=== PATIENT | female | born 1960 | race Caucasian/White ===

== ENCOUNTER 2022-10-08 14:44 | Observation (INO) | payer OTHER ==
[2022-10-08] MEDS ORDERED: HEPARIN SODIUM 1,000 UN/ML (10ML VL) IV ONE (15:20)
[2022-10-08] MEDS ORDERED: SODIUM CHLORIDE 0.9% 1,000 ML IV STA (15:20)
[2022-10-08] MEDS ORDERED: ASPIRIN 81 MG PO STA (15:20)
[2022-10-08] MEDS ORDERED: NITROGLYCERIN SL TABS 0.4 MG TAB SUBLINGUAL STA (15:20)
[2022-10-08] MEDS ORDERED: HEPARIN SOD,PORK IN 0.45% NACL 25,000 UNIT in 0.45% NACL 1 250ML.BAG IV SCH (15:30)
[2022-10-08] MEDS ORDERED: ONDANSETRON 4 MG/2 ML VIAL IVP STA (15:40)
--- NOTE | 2022-10-08 15:40 | ED ---
General Adult HPI - General Chief complaint: Chest Pain Stated complaint: Possible heart attack Time Seen by Provider: 10/08/22 15:03 Source: patient Mode of arrival: wheelchair Limitations: no limitations - History of Present Illness Initial comments: Dictation was produced using [employer] dictation software. please excuse any grammatical, word or spelling errors. Chief Complaint: 61 year old alcoholic male presents with brother for symptoms of palpitations, nausea vomiting and chest pain History of Present Illness: Patient's 61-year-old female she has no known medical history. She does not follow up with a primary care doctor for the last 7 days she's been having on-and-off chest pain associated with this nonbloody emesis. States that pain is sometimes substernal sometimes to the right anterior chest. She states that sometimes sharp. States that it sometimes radiates to the jaw. Does not radiate down the extremities. There is associated with nausea and she reports yes or diaphoresis. She reports that the pain is a 7 on a 10 scale. She has no known cardiac history. Brother at the bedside reports that patient does not seem to be herself. The ROS documented in this emergency department record has been reviewed and confirmed by me. Those systems with pertinent positive or negative responses have been documented in the HPI. All other systems are other negative and/or noncontributory. - Related Data Allergies Allergy/AdvReac Type Severity Reaction Status Date / Time No Known Allergies Allergy Verified 10/08/22 14:49 Review of Systems ROS Statement: Those systems with pertinent positive or pertinent negative responses have been documented in the HPI. ROS Other: All systems not noted in ROS Statement are negative. Past Medical History Additional Past Medical History / Comment(s): COVID History of Any Multi-Drug Resistant Organisms: None Reported Past Surgical History: No Surgical Hx Reported Past Psychological History: No Psychological Hx Reported Smoking Status: Former smoker Past Alcohol Use History: Daily General Exam - General Exam Comments Initial Comments: PHYSICAL EXAM: General Impression: Alert and oriented x3, not in acute distress HEENT: Normocephalic atraumatic, extra-ocular movements intact, pupils equal and reactive to light bilaterally, mucous membranes moist. Cardiovascular: Heart regular rate and rhythm Chest: Able to complete full sentences, no retractions, no tachypnea Abdomen: abdomen soft, non-tender, non-distended, no organomegaly Musculoskeletal: Pulses present and equal in all extremities, no peripheral edema Motor: no focal deficits noted Neurological: CN II-XII grossly intact, no focal motor or sensory deficits noted Skin: Intact with no visualized rashes Psych: Normal affect and mood Limitations: no limitations Course Vital Signs 10/08/22 10/08/22 14:47 16:00 Temperature 97.5 F L Pulse Rate 127 H 77 Respiratory 22 18 Rate Blood Pressure 148/84 132/73 O2 Sat by Pulse 99 100 Oximetry - Reevaluation(s) Reevaluation #1: 10/08/22 16:43 patient given nitroglycerin and reevaluated at the bedside states that her symptoms were significantly alleviated after nitroglycerin administration. CT angiography results reviewed showing no pulmonary embolism. It does appear to be some signs of early pneumonia. Patient given antibiotics. EKG Findings - EKG Comments: EKG Findings:: My EKG interpretation: Ventricular rate 120, sinus tachycardia,. Interval 14, QRS 79, QTC 373. This EKG shows diffuse ST depressions with questionable ST elevations in anterior precordial leads and aVR. Repeat EKG was obtained 18 minutes later showing mild depressions over no ST elevations. Second G have ventricular rate of 100, sinus tachycardia with NM interval 127, QRS 94 QTC 389 Medical Decision Making - Medical Decision Making Was pt. sent in by a medical professional or institution (SARATH Avalos, [employer], urgent care, hospital, or detention...) When possible be specific @ -No Did you speak to anyone other than the patient for history (EMS, parent, family, police, friend...)? What history was obtained from this source @ -The bedside reports that patient doesn't seem to be herself Did you review nursing and triage notes (agree or disagree)? Why? @ -I reviewed and agree with nursing and triage notes Were old charts reviewed (outside hosp., previous admission, EMS record, old EKG, old radiological studies, urgent care reports/EKG's, detention records)? Report findings @ -No old charts available for review Differential Diagnosis (chest pain, altered mental status, abdominal pain women, abdominal pain men, vaginal bleeding, musculoskeletal, weakness, fever, dyspnea, syncope, headache, dizziness, GI bleed, back pain, seizure, CVA, palpatations, mental health)? @ -Differential Chest Pain: Stable Angina, Unstable Angina, STEMI, NSTEMI Aortic Dissection, Pneumothorax, Musculoskeletal, Esophageal Spasm GERD, Cholecystitis, Pancreatitis, Zoster, this is not meant to be an all-inclusive list. EKG interpreted by me (3pts min.). @ -See above X-rays interpreted by me (1pt min.). @ -Chest x-ray shows no acute processes. CT interpreted by me (1pt min.). @ -CT angiography shows no pulmonary embolism. There does appear to be some patchy densities suspicious for early pneumonia. Other incidental findings of hepatic steatosis and esophagitis U/S interpreted by me (1pt. min.). @ -None done What testing was considered but not performed or refused? (CT, X-rays, U/S, labs)? Why? @ -None What meds were considered but not given or refused? Why? @ -None Did you discuss the management of the patient with other professionals (professionals i.e. , PA, [employer], lab, RT, psych nurse, secondary social studies teacher, lead radiation therapist, teacher, public information officer, outpatient case manager)? Give summary @ -Clinical presentation, labs and imaging discussed with Debby Kate who is willing to accept patient care on behalf of [facility] hospitalist group Was smoking cessation discussed for >3mins.? @ -No Was critical care preformed (if so, how long)? @ -Yes, 33 minutes Were there social determinants of health that impacted care today? How? (Homelessness, low income, unemployed, alcoholism, drug addiction, transportation, low edu. Level, literacy, decrease access to med. care, longterm, rehab)? @ - alcoholism Was there de-escalation of care discussed even if they declined (Discuss DNR or withdrawal of care, Hospice)? DNR status @ -No What co-morbidities impacted this encounter? (DM, HTN, Smoking, COPD, CAD, Can cer, CVA, ARF, Chemo, Hep., AIDS, mental health diagnosis, sleep apnea, morbid obesity)? @ -None Was patient admitted / discharged? Hospital course, mention meds given and route, prescriptions, significant lab abnormalities, going to OR and other pertinent info. @ -61-year-old female presents to the emergency department for unstable angina. Symptoms considerably improved with nitroglycerin administration. She did have ischemic findings on EKG. Troponin is negative. Patient isn't having symptoms for greater than one week. He did appear to be some evidence of pneumonia on CT angiography. Patient be admitted patient given aspirin. She is on heparin and given Nitropaste. Undiagnosed new problem with uncertain prognosis? @ -No Drug Therapy requiring intensive monitoring for toxicity (Heparin, Nitro, Insulin, Cardizem)? @ -No Were any procedures done? @ -No Diagnosis/symptom? Acute, or Chronic, or Acute on Chronic? Uncomplicated (without systemic symptoms) or Complicated (systemic symptoms)? @ -Acute coronary syndrome Side effects of treatment? @ -No Exacerbation, Progression, or Severe Exacerbation? @ -No Poses a threat to life or bodily function? How? (Chest pain, [place], [place], pneumonia, PE, COPD, DKA, ARF, appy, cholecystitis, CVA, Diverticulitis, Homicidal, Suicidal, threat to staff... and all critical care pts) @ -yes - Lab Data Result diagrams: 10/08/22 15:28 10/08/22 15:28 Lab Results 10/08/22 10/08/22 10/08/22 Range/Units 15:28 15:28 15:28 WBC 14.7 H (3.8-10.6) k/uL RBC 3.06 L (3.80-5.40) m/uL Hgb 10.6 L (11.4-16.0) gm/dL Hct 31.2 L (34.0-46.0) % MCV 102.2 H (80.0-100.0) fL MCH 34.7 (25.0-35.0) pg MCHC 34.0 (31.0-37.0) g/dL RDW 15.6 H (11.5-15.5) % Plt Count 495 H (150-450) k/uL MPV 8.9 Neutrophils % 76 % Lymphocytes % 16 % Monocytes % 5 % Eosinophils % 1 % Basophils % 0 % Neutrophils # 11.3 H (1.3-7.7) k/uL Lymphocytes # 2.4 (1.0-4.8) k/uL Monocytes # 0.8 (0-1.0) k/uL Eosinophils # 0.2 (0-0.7) k/uL Basophils # 0.0 (0-0.2) k/uL Macrocytosis Slight PT 10.7 (9.0-12.0) sec INR 1.0 (<1.2) APTT 20.7 L (22.0-30.0) sec Sodium 140 (137-145) mmol/L Potassium 3.1 L (3.5-5.1) mmol/L Chloride 94 L (98-107) mmol/L Carbon Dioxide 28 (22-30) mmol/L Anion Gap 18 mmol/L BUN 21 H (7-17) mg/dL Creatinine 0.80 (0.52-1.04) mg/dL Est GFR (CKD-EPI)AfAm >90 (>60 ml/min/1.73 sqM) Est GFR (CKD-EPI)NonAf 80 (>60 ml/min/1.73 sqM) Glucose 152 H (74-99) mg/dL Calcium 9.4 (8.4-10.2) mg/dL Magnesium 1.6 (1.6-2.3) mg/dL Total Bilirubin 1.0 (0.2-1.3) mg/dL AST 36 (14-36) U/L ALT 16 (4-34) U/L Alkaline Phosphatase 69 (38-126) U/L Troponin I (0.000-0.034) ng/mL Total Protein 7.3 (6.3-8.2) g/dL Albumin 4.2 (3.5-5.0) g/dL 10/08/22 Range/Units 15:28 WBC (3.8-10.6) k/uL RBC (3.80-5.40) m/uL Hgb (11.4-16.0) gm/dL Hct (34.0-46.0) % MCV (80.0-100.0) fL MCH (25.0-35.0) pg MCHC (31.0-37.0) g/dL RDW (11.5-15.5) % Plt Count (150-450) k/uL MPV Neutrophils % % Lymphocytes % % Monocytes % % Eosinophils % % Basophils % % Neutrophils # (1.3-7.7) k/uL Lymphocytes # (1.0-4.8) k/uL Monocytes # (0-1.0) k/uL Eosinophils # (0-0.7) k/uL Basophils # (0-0.2) k/uL Macrocytosis PT (9.0-12.0) sec INR (<1.2) APTT (22.0-30.0) sec Sodium (137-145) mmol/L Potassium (3.5-5.1) mmol/L Chloride (98-107) mmol/L Carbon Dioxide (22-30) mmol/L Anion Gap mmol/L BUN (7-17) mg/dL Creatinine (0.52-1.04) mg/dL Est GFR (CKD-EPI)AfAm (>60 ml/min/1.73 sqM) Est GFR (CKD-EPI)NonAf (>60 ml/min/1.73 sqM) Glucose (74-99) mg/dL Calcium (8.4-10.2) mg/dL Magnesium (1.6-2.3) mg/dL Total Bilirubin (0.2-1.3) mg/dL AST (14-36) U/L ALT (4-34) U/L Alkaline Phosphatase (38-126) U/L Troponin I <0.012 (0.000-0.034) ng/mL Total Protein (6.3-8.2) g/dL Albumin (3.5-5.0) g/dL Disposition Clinical Impression: Unstable angina pectoris Disposition: ADMITTED IP TO THIS [facility] Condition: Serious Referrals: None,Stated [Primary Care Provider] - 1-2 days Decision Time: 16:45
[2022-10-08 15:53] LABS: Partial Thromboplastin Time 20.7 sec (22.0-30.0)
[2022-10-08 15:54] LABS: Basophils % (A) 0 %; Eosinophils # (A) 0.2 k/uL (0-0.7); Eosinophils % (A) 1 %; HCT 31.2 % (34.0-46.0); HGB 10.6 gm/dL (11.4-16.0); Lymphocytes # (A) 2.4 k/uL (1.0-4.8); Lymphocytes % (A) 16 %; MCH 34.7 pg (25.0-35.0); MCV 102.2 fL (80.0-100.0); Macrocytosis Slight; Mean Platelet Volume 8.9; Monocytes # (A) 0.8 k/uL (0-1.0); Monocytes % (A) 5 %; Neutrophils # (A) 11.3 k/uL (1.3-7.7); Neutrophils % (A) 76 %; Platelet Count 495 k/uL (150-450); RBC 3.06 m/uL (3.80-5.40); RDW 15.6 % (11.5-15.5); WBC 14.7 k/uL (3.8-10.6)
[2022-10-08 15:56] LABS: Prothrombin Time 10.7 sec (9.0-12.0)
[2022-10-08 15:57] LABS: ALT 16 U/L (4-34); AST 36 U/L (14-36); African American GFR (CKD) >90 (>60 ml/min/1.73 sqM); Albumin 4.2 g/dL (3.5-5.0); Alkaline Phosphatase 69 U/L (38-126); Anion Gap 18 mmol/L; Blood Urea Nitrogen 21 mg/dL (7-17); Calcium 9.4 mg/dL (8.4-10.2); Carbon Dioxide 28 mmol/L (22-30); Chloride 94 mmol/L (98-107); Glucose 152 mg/dL (74-99); Magnesium 1.6 mg/dL (1.6-2.3); Non-African American GFR(CKD) 80 (>60 ml/min/1.73 sqM); Potassium 3.1 mmol/L (3.5-5.1); Sodium 140 mmol/L (137-145); Total Protein 7.3 g/dL (6.3-8.2)
--- NOTE | 2022-10-08 15:57 | XR ---
EXAMINATION TYPE: XR chest 2V DATE OF EXAM: 10/08/2022 3:46 PM COMPARISON: None TECHNIQUE: XR chest 2V Frontal and lateral views of the chest. CLINICAL INDICATION:Female, 61 years old with history of Chest Pain; FINDINGS: Lungs/Pleura: There is no evidence of pleural effusion, focal consolidation, or pneumothorax. Pulmonary vascularity: Unremarkable. Heart/mediastinum: Cardiomediastinal silhouette is unremarkable. Musculoskeletal: No acute osseous pathology. IMPRESSION: No acute cardiopulmonary disease/process.
--- NOTE | 2022-10-08 16:37 | CT ---
EXAMINATION TYPE: CT angio chest DATE OF EXAM: 10/08/2022 COMPARISON: Radiograph same day HISTORY: 61-year-old female chest pain, suspect PE TECHNIQUE: Contiguous axial scanning of the chest performed with IV Contrast, patient injected with 1 00 mL of Isovue 370. Coronal/sagittal MIP reconstructions performed. CT DLP: 219.3 mGycm Automated exposure control for dose reduction was used. FINDINGS: Heart normal size without pericardial effusion. No flattening of the interventricular septum reflux o f contrast into the hepatic veins. Aorta normal caliber with a bovine configuration to the aortic arch. No thoracic lymphadenopathy by CT size criteria. Satisfactory opacification of the pulmonary arterial system. No evidence for pulmonary embolus. Mild diffuse bronchial wall thickening. Some mild patchy opacity superior segment left lower lobe cou ld represent a small infectious/inflammatory focus. Mild biapical pleural-parenchymal scarring. No ot her consolidation or pleural effusion seen. There is a tiny hiatal hernia with mild to moderate circumferential wall thickening distal third esop hagus. Otherwise, visualized upper abdomen shows marked diminished attenuation of the hepatic parench yma compatible with fatty infiltration. Bilateral renal cysts measuring up to 2.8 cm. Bones: No osseous destructive process. IMPRESSION: 1. NO EVIDENCE FOR PULMONARY EMBOLUS. 2. SOME FOCAL PATCHY DENSITY IN THE SUPERIOR SEGMENT LEFT LOWER LOBE COULD REPRESENT A SMALL INFECTIO US/INFLAMMATORY FOCUS. CORRELATE TO EXCLUDE EARLY PNEUMONIA. 3. SMALL HIATAL HERNIA WITH MILD TO MODERATE CIRCUMFERENTIAL WALL THICKENING OF THE DISTAL THIRD ESOP HAGUS. FINDINGS MAY REFLECT REFLUX OR OTHER ESOPHAGITIS. RECOMMEND DIRECT VISUALIZATION. 4. Moderate to severe hepatic steatosis. Correlate with LFTs, lipid profile, and patient risk factors .
[2022-10-08] MEDS ORDERED: cefTRIAXone IN SWFI 1,000 MG/10 ML SYRINGE IVP STA (16:41)
[2022-10-08] MEDS ORDERED: AZITHROMYCIN 500 MG in SODIUM CHLORIDE 0.9% 250 ML IVPB STA (16:41)
[2022-10-08] MEDS ORDERED: NITROGLYCERIN SL TABS 0.4 MG TAB SUBLINGUAL PRN (16:58)
[2022-10-08] MEDS: NITROGLYCERIN OINT 1 INCH/GM PACKET TOPICAL SCH ×2 (18:05→23:29)
[2022-10-08] MEDS ORDERED: Potassium Replacement Protocol 1 EACH MISC MISCELLANE PRN (19:36)
[2022-10-08] MEDS ORDERED: Magnesium Replacement Protocol 1 EACH MISC MISCELLANE PRN (19:36)
[2022-10-08] MEDS: MAGNESIUM SULFATE-D5W PMX 1 GM in DEXTROSE/WATER 1 100ML.BAG IVPB SCH ×2 (19:44→20:50)
[2022-10-08] MEDS: POTASSIUM CHLORIDE ER 20 MEQ TAB.ER PO SCH ×2 (19:45→20:50)
[2022-10-09 05:19] LABS: Magnesium 2.5 mg/dL (1.6-2.3); Potassium 3.2 mmol/L (3.5-5.1)
[2022-10-09] MEDS ORDERED: Potassium Replacement Protocol 1 EACH MISC MISCELLANE PRN ×2 (05:30→09:28)
[2022-10-09] MEDS: POTASSIUM CHLORIDE ER 20 MEQ TAB.ER PO SCH ×2 (05:50→06:45)
[2022-10-09] MEDS: NITROGLYCERIN OINT 1 INCH/GM PACKET TOPICAL SCH (05:51)
[2022-10-09 08:23] VITALS: RESP 16
[2022-10-09] MEDS ORDERED: DOBUTamine DRIP for NUC MED 500 MG in DEXTROSE/WATER 1 250ML.BAG IV PRN (08:27)
--- NOTE | 2022-10-09 08:34 | P.CRDCN ---
History of Present Illness Consult date: 10/09/22 History of present illness: History of Present Illness: The patient is a 61-year-old female, does not follow with a physician who 2 months ago had COVID infection. Since that time she has been feeling fatigued, dyspneic with lack of energy. She has been complaining of chest discomfort, at times respirophasic. She has been having nausea, vomiting and diarrhea with w orsening discomfort. She came into the emergency room for further evaluation. She feels better today. She denies any prior history of CAD. She used to smoke and drink alcohol until her illness 2 months ago. She denies any PND, orthopnea or peripheral edema. She has no palpitations or syncope. She takes no medication at home. In the emergency room her EKG showed no acute changes and her troponin were normal. She has no prior cardiac workup. Medications: None Review of Systems: Respiratory: Dyspnea on exertion and a prior history of smoking GI: She has nausea and vomiting and diarrhea. No clear GI bleeding : No hematuria or dysuria. Nervous System: No stroke or seizure. Physical Examination: 61-year-old female, alert oriented no apparent distress,Blood pressure 108/60, Heart rate 70 Head: Normocephalic. Eyes: Sclerae nonicteric. Neck: Good carotid upstroke, no bruit, no jugular venous distention. Lungs: Clear to auscultation. Heart: Regular rate and rhythm, S1-S2, no S3, no rub. No murmur. Abdomen: Soft nontender, positive bowel sounds no organomegaly. Extremities: No edema, intact distal pulses. Labs: Hemoglobin 10.6, WBC 14.7, potassium 3.1, BUN 21, creatinine 0.8. Troponin less than 0.012. Chest CT angiogram showed no evidence of pulmonary embolism with a small hiatal hernia, chest x-ray shows no acute infiltrate. EKG: Sinus mechanism with no acute ST segment changes Impression: 1. Chest discomfort, probably noncardiac, probably worse with the nausea and vomiting 2. Anemia of unclear etiology 3. Nausea and vomiting and diarrhea 4. Prior history of smoking and alcohol intake Plan: 1. Stop IV heparin 2. Stop Nitropaste 3. Obtain an echocardiogram with Doppler 4. Dobutamine stress echocardiogram 5. Evaluation of her GI symptoms per admitting physician 6. Thank you for this consult we will follow with you Past Medical History Additional Past Medical History / Comment(s): COVID 2022 History of Any Multi-Drug Resistant Organisms: None Reported Past Surgical History: No Surgical Hx Reported Past Anesthesia/Blood Transfusion Reactions: No Reported Reaction Past Psychological History: No Psychological Hx Reported Smoking Status: Former smoker Past Alcohol Use History: Daily Past Drug Use History: None Reported - Past Family History Mother History Unknown: Yes Additional Family Medical History / Comment(s): aneursym Father History Unknown: Yes Family Medical History: Myocardial Infarction ([place]) Medications and Allergies Home Medications Medication Instructions Recorded Confirmed Type No Known Home Medications 10/08/22 10/08/22 History Allergies Allergy/AdvReac Type Severity Reaction Status Date / Time No Known Allergies Allergy Verified 10/08/22 17:10 Physical Exam Vitals: Vital Signs Temp Pulse Pulse Resp BP BP Pulse Ox 10/09/22 08:20 98.1 F 73 16 108/61 100 10/09/22 04:00 72 17 100/63 98 10/09/22 00:00 97.9 F 70 18 98/62 98 10/08/22 19:41 98.1 F 83 17 115/55 98 10/08/22 18:00 75 18 121/70 99 10/08/22 17:00 76 20 132/73 99 10/08/22 16:30 81 20 132/73 100 10/08/22 16:00 81 18 118/94 100 10/08/22 14:47 97.5 F L 127 H 22 148/84 99 Intake and Output 10/08/22 10/09/22 10/09/22 22:59 06:59 14:59 Intake Total 47.527 66.632 Balance 47.527 66.632 Intake: Intake, IV Titration 47.527 66.632 Amount Heparin Sod,Pork in 0.45% 47.527 66.632 NaCl 25,000 unit In 0.45 % NaCl 1 250ml.bag @ 12 UNITS/KG/HR 7.076 mls/hr IV .Q24H [facility] Rx#: [id number] Other: Voiding Method Toilet Toilet Toilet # Voids 1 Weight 54.5 kg Results 10/08/22 15:28 10/09/22 04:22 Cardiac Enzymes 10/08/22 10/08/22 10/08/22 Range/Units 15:28 15:28 19:10 AST 36 (14-36) U/L Troponin I <0.012 <0.012 (0.000-0.034) ng/mL 10/08/22 Range/Units 21:41 AST (14-36) U/L Troponin I <0.012 (0.000-0.034) ng/mL Coagulation 10/08/22 10/08/22 10/09/22 Range/Units 15:28 21:41 04:22 PT 10.7 (9.0-12.0) sec APTT 20.7 L 30.4 H 37.1 H (22.0-30.0) sec CBC 10/08/22 Range/Units 15:28 WBC 14.7 H (3.8-10.6) k/uL RBC 3.06 L (3.80-5.40) m/uL Hgb 10.6 L (11.4-16.0) gm/dL Hct 31.2 L (34.0-46.0) % Plt Count 495 H (150-450) k/uL Comprehensive Metabolic Panel 10/08/22 10/09/22 Range/Units 15:28 04:22 Sodium 140 (137-145) mmol/L Potassium 3.1 L 3.2 L (3.5-5.1) mmol/L Chloride 94 L (98-107) mmol/L Carbon Dioxide 28 (22-30) mmol/L BUN 21 H (7-17) mg/dL Creatinine 0.80 (0.52-1.04) mg/dL Glucose 152 H (74-99) mg/dL Calcium 9.4 (8.4-10.2) mg/dL AST 36 (14-36) U/L ALT 16 (4-34) U/L Alkaline Phosphatase 69 (38-126) U/L Total Protein 7.3 (6.3-8.2) g/dL Albumin 4.2 (3.5-5.0) g/dL Current Medications Generic Name Dose Route Start Last Admin Trade Name Freq PRN Reason Stop Dose Admin Aspirin 81 mg 10/09/22 09:00 Aspirin 325 Mg Tab PO DAILY SAVANNA Dobutamine HCl/Dextrose 500 mg 250 mls @ 16.35 mls/hr 10/09/22 08:27 / IV Solution IV 10/09/22 12:27 .[id number] PRN Per Protocol Protocol 10 MCG/KG/MIN Miscellaneous Information 1 each 10/08/22 19:36 Magnesium Replacement Protocol 1 Each Misc MISCELLANE DAILY PRN Per Protocol Protocol Miscellaneous Information 1 each 10/08/22 19:36 Potassium Replacement Protocol 1 Each Misc MISCELLANE DAILY PRN Per Protocol Protocol Nitroglycerin 0.4 mg 10/08/22 16:58 Nitroglycerin Sl Tabs 0.4 Mg Tab SUBLINGUAL Q5M PRN Chest Pain Intake and Output 10/08/22 10/09/22 10/09/22 22:59 06:59 14:59 Intake Total 47.527 66.632 Balance 47.527 66.632 Intake: Intake, IV Titration 47.527 66.632 Amount Heparin Sod,Pork in 0.45% 47.527 66.632 NaCl 25,000 unit In 0.45 % NaCl 1 250ml.bag @ 12 UNITS/KG/HR 7.076 mls/hr IV .Q24H [facility] Rx#: [id number] Other: Voiding Method Toilet Toilet Toilet # Voids 1 Weight 54.5 kg 10/08/22 15:28 10/09/22 04:22
[2022-10-09] MEDS ORDERED: ASPIRIN 81 MG PO SCH (09:00)
[2022-10-09] MEDS ORDERED: ASPIRIN 325 MG TAB PO SCH (09:00)
[2022-10-09 09:27] LABS: Chol/HDL Ratio 5.41 Ratio; LDL Cholesterol,Calculated 91.8 mg/dL (0.0-131.0)
[2022-10-09] MEDS ORDERED: POTASSIUM CHLORIDE ER 20 MEQ TAB.ER PO SCH (10:00)
[2022-10-09] MEDS ORDERED: DOBUTamine DRIP for NUC MED 500 MG/250 ML BAG IV ONE (11:12)
--- NOTE | 2022-10-09 11:43 | CA ---
Dobutamine Stress Echocardiogram Report Geovanna Mixon Age: 61 Gender: F : 1960 Exam Date: 10/09/2022 10:34 Exam Location: [place] [facility] Ordering Physician: Eren Nicole MD ([id number]) Referring Physician: EREN NICOLE,, Oral Surgeon: BING,, Technologist: Ht (in): 64 Wt (lb): 120 Procedure CPT: Indication: Chest Pain ICD-9 Codes: Rhythm: Patient History: Chest pain Cardiac Medications: Medications in past 24 hours: Contrast: Total Dose (mL): Stress Results Protocol: Dobutamine Peak Dose (???g/kg/min): 40 Duration (min:sec): Atropine:(mg) Target HR: 134 Double Product: Resting HR: 68 Resting BP: 107 / 56 Peak HR: 135 Peak BP: 152 / 67 Max Predicted HR: 158 85 % Max Predicted HR Stress Summary: BP Response: Reason for Termination: Exceeded target heart rate (85% max predicted) Cardiac Symptoms: No Symptoms ECG Analysis Resting EKG: Normal sinus rhythm normal lites normal intervals Stress EKG: Patient was given intravenous dobutamine or a period of 10 and half minutes achieving 85% of predicted maximal heart rate without chest pain or diagnostic ST segment depression Arrhythmia: Echo Analysis Base Echo Analysis: Normal left ventricular size wall motion systolic function Low Echo Anaylsis: Normal Peak Echo Analysis: Normal hyperdynamic response Recovery Echo: Normal MEASUREMENTS (Male/Female) Normal Values CONCLUSIONS Negative stress test by EKG criteria Negative dobutamine stress echo Dr. Wayne Egan MD (Electronically Signed) Final Date: 09 October 2022 11:42
--- NOTE | 2022-10-09 11:45 | CA ---
Transthoracic Echo Report Name: Geovanna Mixon Age: 61 Gender: F : 1960 Exam Date: 10/09/2022 08:52 Exam Location: [place] [facility] Ht (in): 64 Wt (lb): 119 Ordering Physician: Eren Escobar MD ([id number]) Attending/Referring Phys: Care Attendant Keisha Cabello RDCS Procedure CPT: Indications: CP Cardiac Hx: Technical Quality: Fair Contrast 1: Total Dose (mL): Contrast 2: Total Dose (mL): MEASUREMENTS (Male / Female) Normal Values 2D ECHO LV Diastolic Diameter PLAX 3.6 cm 4.2 - 5.9 / 3.9 - 5.3 cm LV Systolic Diameter PLAX 2.4 cm IVS Diastolic Thickness 1.1 cm 0.6 - 1.0 / 0.6 - 0.9 cm LVPW Diastolic Thickness 1.0 cm 0.6 - 1.0 / 0.6 - 0.9 cm LV Relative Wall Thickness 0.6 RV Internal Dim ED PLAX 2.9 cm LA Volume 28.6 cm??? 18 - 58 / 22 - 52 cm??? M-MODE Aortic Root Diameter MM 2.8 cm LA Systolic Diameter MM 3.9 cm LA Ao Ratio MM 1.4 AV Cusp Separation MM 1.9 cm DOPPLER AV Peak Velocity 117.4 cm/s AV Peak Gradient 5.5 mmHg AV Mean Velocity 80.8 cm/s AV Mean Gradient 2.9 mmHg AV Velocity Time Integral 22.2 cm LVOT Peak Velocity 106.5 cm/s LVOT Peak Gradient 4.5 mmHg LVOT Velocity Time Integral 21.1 cm MV Area PHT 3.7 cm??? Mitral E Point Velocity 87.7 cm/s Mitral A Point Velocity 63.9 cm/s Mitral E to A Ratio 1.4 MV Deceleration Time 202.6 ms TR Peak Velocity 224.4 cm/s TR Peak Gradient 20.1 mmHg FINDINGS Left Ventricle Mildly increased left ventricular wall thickness. Left ventricular cavity size normal. Normal left ventricular systolic function with no obvious regional wall motion abnormalities. Left ventricular ejection fraction is estimated at 55-60 %. Right Ventricle Normal right ventricular size and function. Right ventricular systolic pressure within normal limits. Right Atrium Normal right atrial size. Left Atrium Normal left atrial size. Mitral Valve Structurally normal mitral valve. No mitral stenosis, regurgitation or prolapse. Aortic Valve Trileaflet aortic valve. No aortic valve stenosis or regurgitation. Tricuspid Valve Structurally normal tricuspid valve. Mild tricuspid regurgitation. Pulmonic Valve Trace pulmonic regurgitation. Pericardium No pericardial effusion. Aorta Normal size aortic root and proximal ascending aorta. CONCLUSIONS Normal LV systolic function Previewed by: Dr. Wayne Egan MD (Electronically Signed) Final Date: 09 October 2022 11:45
[2022-10-09 12:44] VITALS: BP 125/82; PULSE 75; TEMP 98.3
[2022-10-09 13:11] LABS: African American GFR (CKD) >90 (>60 ml/min/1.73 sqM); Anion Gap 12 mmol/L; Blood Urea Nitrogen 16 mg/dL (7-17); Calcium 8.1 mg/dL (8.4-10.2); Carbon Dioxide 28 mmol/L (22-30); Chloride 100 mmol/L (98-107); Glucose 112 mg/dL (74-99); Magnesium 2.2 mg/dL (1.6-2.3); Non-African American GFR(CKD) >90 (>60 ml/min/1.73 sqM); Potassium 3.2 mmol/L (3.5-5.1); Sodium 140 mmol/L (137-145)
--- NOTE | 2022-10-09 14:39 | P.HPIM ---
History of Present Illness H&P Date: 10/09/22 This is a pleasant 61-year-old female who presented to the emergency department with chest pain that she reports had started while doing some gardening. Patient reported that she felt palpitations associated with some nausea and vomiting. Patient does have history of drinking alcohol daily and is a former smoker although had Covid 2 months ago and has not drank since. Patient has not followed up with any physicians in quite some time and does not currently have a primary care provider. Patient was admitted for chest pain for cardiology to evaluate. EKG showed sinus tachycardia, chest x-ray showed no acute cardiopulmonary process or disease. Patient underwent CTA which showed no evidence for pulmonary embolus with some focal patchy densities in the superior segment left lower lobe that could represent an infectious inflammatory focus with a small hiatal hernia with some mild to moderate circumferential wall thickening of the distal third esophagus that may reflect reflux or esophagitis along with moderate to severe hepatic steatosis. Labs reviewed with a mildly elevated white count of 14.7, hemoglobin 10.6, platelets 495, MCV was 102.2, sodium was 140, potassium 3.1, BUN 21, creatinine 0.8, magnesium 1.6, total bili 1.0, troponins 3 were negative, ALT and AST were within normal limits and cholesterol panel was normal. Patient was evaluated by cardiology this morning and is scheduled to undergo stress testing with echo Review Of Systems: Constitutional: No fever, no chills, no night sweats. No weight change. No weakness, fatigue or lethargy. No daytime sleepiness. EENT: No headache. No blurred vision or double vision, no loss of vision. No loss of Hearing, no ringing in the ears, no dizziness. No nasal drainage or congestion. No epistaxis. No sore throat. Lungs: No shortness of breath, cough, no sputum production. No wheezing. Cardiovascular: Reports chest pain that has resolved, no lower extremity edema. Reports palpitations that resolved. No paroxysmal nocturnal dyspnea. No orthopnea. No lightheadedness or dizziness. No syncopal episodes. Abdominal: No abdominal pain. Reports resolved nausea, vomiting. No diarrhea. No constipation. No bloody or tarry stools.. No loss of appetite. Genitourinary: No dysuria, increased frequency, urgency. No urinary retention. Musculoskeletal: No myalgias. No muscle weakness, no gait dysfunction, no frequent falls. No back pain. No neck pain. Integumentary: No wounds, no lesions. No rash or pruritus. No unusual bruising. No change in hair or nails. Neurologic: No aphasia. No facial droop. No change in mentation. No head injury. No headache. No paralysis. No paresthesia. Psychiatric: No depression. No anxiety. No mood swings. Endocrine: No abnormal blood sugars. No weight change. No excessive sweating or thirst. No cold intolerance. PHYSICAL EXAMINATION: GENERAL: The patient is alert and oriented x4, Well developed, Thin built HEENT: Pupils are round and equally reacting to light. EOMI. no scleral icterus. No conjunctival pallor. Normocephalic, atraumatic. No pharyngeal erythema. No thyromegaly. CARDIOVASCULAR: S1 and S2 muffled PULMONARY: diminished breath sounds bilaterally with no wheezing or rhonchi noted. ABDOMEN: soft. Nontender on exam. non-distended, normoactive bowel sounds. No palpable organomegaly. MUSCULOSKELETAL: No joint swelling or deformity. EXTREMITIES: No cyanosis, clubbing, or pedal edema. NEUROLOGICAL: Gross neurological examination did not reveal any focal deficits. SKIN: No rashes. Assessment: Chest pain, ruled out ACS Nausea and vomiting, possible acute gastritis Recent COVID-19 infection 2 months ago Hepatic steatosis most likely secondary to continued alcohol use Former smoker, recently quit 2 months ago GI prophylaxis DVT prophylaxis No code Plan: Recommend to continue with current medications and management with cardiology to evaluate the patient. Cardiology recommending discontinuing IV heparin and underwent stress testing Tamra scan which was negative and has been cleared by cardiology Strongly encouraged the patient to follow up and establish with a primary care provider and resources were provided Recommend follow-up with cardiology outpatient Continue to refrain from using any alcohol or tobacco use Patient will be discharged later today The impression and plan of care has been dictated by Debby Kate, nurse practitioner as directed. Dr. Rob MD I have performed a history and examination and MDM of this patient, discussed the same with the dictator, and agree with the dictator's assessment and plan as written ,documented as a scribe. Based on total visit time, I have performed more than 50% of the visit. Any additional findings or plans will be noted. Past Medical History Additional Past Medical History / Comment(s): COVID 2022 History of Any Multi-Drug Resistant Organisms: None Reported Past Surgical History: No Surgical Hx Reported Past Anesthesia/Blood Transfusion Reactions: No Reported Reaction Past Psychological History: No Psychological Hx Reported Smoking Status: Former smoker Past Alcohol Use History: Daily Past Drug Use History: None Reported - Past Family History Mother History Unknown: Yes Additional Family Medical History / Comment(s): aneursym Father History Unknown: Yes Family Medical History: Myocardial Infarction (VT) Medications and Allergies Home Medications Medication Instructions Recorded Confirmed Type Aspirin 81 mg PO DAILY #30 tab 10/09/22 Rx Nitroglycerin Sl Tabs [Nitrostat] 0.4 mg SUBLINGUAL Q5M PRN #20 tab 10/09/22 Rx Allergies Allergy/AdvReac Type Severity Reaction Status Date / Time No Known Allergies Allergy Verified 10/08/22 17:10 Physical Exam Vitals: Vital Signs Temp Pulse Pulse Resp BP BP Pulse Ox 10/09/22 08:20 98.1 F 73 16 108/61 100 10/09/22 04:00 72 17 100/63 98 10/09/22 00:00 97.9 F 70 18 98/62 98 10/08/22 19:41 98.1 F 83 17 115/55 98 10/08/22 18:00 75 18 121/70 99 10/08/22 17:00 76 20 132/73 99 10/08/22 16:30 81 20 132/73 100 10/08/22 16:00 81 18 118/94 100 10/08/22 14:47 97.5 F L 127 H 22 148/84 99 Intake and Output 10/08/22 10/09/22 10/09/22 22:59 06:59 14:59 Intake Total 47.527 66.632 31.409 Balance 47.527 66.632 31.409 Intake: Intake, IV Titration 47.527 66.632 31.409 Amount Heparin Sod,Pork in 0.45% 47.527 66.632 31.409 NaCl 25,000 unit In 0.45 % NaCl 1 250ml.bag @ 12 UNITS/KG/HR 7.076 mls/hr IV .Q24H SAVANNA Rx#: [id number] Other: Voiding Method Toilet Toilet Toilet # Voids 1 Weight 54.5 kg Results CBC & Chem 7: 10/08/22 15:28 10/09/22 12:19 Labs: Abnormal Lab Results - Last 24 Hours (Table) 10/08/22 10/08/22 10/08/22 Range/Units 15:28 15:28 15:28 WBC 14.7 H (3.8-10.6) k/uL RBC 3.06 L (3.80-5.40) m/uL Hgb 10.6 L (11.4-16.0) gm/dL Hct 31.2 L (34.0-46.0) % MCV 102.2 H (80.0-100.0) fL RDW 15.6 H (11.5-15.5) % Plt Count 495 H (150-450) k/uL Neutrophils # 11.3 H (1.3-7.7) k/uL APTT 20.7 L (22.0-30.0) sec Potassium 3.1 L (3.5-5.1) mmol/L Chloride 94 L (98-107) mmol/L BUN 21 H (7-17) mg/dL Glucose 152 H (74-99) mg/dL Magnesium (1.6-2.3) mg/dL 10/08/22 10/09/22 10/09/22 Range/Units 21:41 04:22 04:22 WBC (3.8-10.6) k/uL RBC (3.80-5.40) m/uL Hgb (11.4-16.0) gm/dL Hct (34.0-46.0) % MCV (80.0-100.0) fL RDW (11.5-15.5) % Plt Count (150-450) k/uL Neutrophils # (1.3-7.7) k/uL APTT 30.4 H 37.1 H (22.0-30.0) sec Potassium 3.2 L (3.5-5.1) mmol/L Chloride (98-107) mmol/L BUN (7-17) mg/dL Glucose (74-99) mg/dL Magnesium 2.5 H (1.6-2.3) mg/dL Thrombosis Risk Factor Assmnt - Choose All That Apply Each Risk Factor Represents 2 Points: Age 61-74 years Thrombosis Risk Factor Assessment Total Risk Factor Score: 2 Thrombosis Risk Factor Assessment Level: Low Risk Assessment and Plan Time with Patient: Greater than 30
--- NOTE | 2022-10-10 10:38 | P.DS ---
Providers Date of admission: 10/08/22 17:00 Expected date of discharge: 10/09/22 Attending physician: Eyal Stevens Consults: 10/08/22 16:58 Consult Physician Urgent Consulting Provider: Eren Escobar Consult Reason/Comments: acs Do you want consulting provider notified?: Yes Primary care physician: Stated None Hospital Course: Final diagnosis Chest pain, ruled out ACS Nausea and vomiting, possible acute gastritis, improved Recent COVID-19 infection 2 months ago Hepatic steatosis most likely secondary to continued alcohol use Former smoker, recently quit 2 months ago GI prophylaxis DVT prophylaxis No code Discharge disposition Patient is being discharged in a stable condition with guarded prognosis to home. Patient will follow-up with Dr. Danilo Stevens to establish in the outpatient setting upon discharge. Patient is to follow-up outpatient with cardiology as scheduled. Total time taken is greater than 35 minutes. Hospital course This is a 61-year-old female who was recently admitted with chest pain and palpitations. Patient was evaluated by cardiology recommend stress test which was normal and has been cleared for outpatient follow-up. Please refer to cardiology notes for further HPI. Patient denies any further nausea or vomiting like to go home. Patient does not currently have a primary care provider and was instructed to follow up with resources provided. Patient also encouraged to continue to refrain from any alcohol or tobacco use. Currently no reports of chest pain, shortness of breath, or palpitations. Patient is afebrile. No repo rts of nausea or vomiting and patient is tolerating diet. Patient will be discharged home today. Physical exam: Gen: This is a 61-year-old female who is awake, alert and oriented 3, thin built, well developed HEENT: Head is atraumatic, normocephalic. Pupils equal, round. Sclerae is anicteric. NECK: Supple. No JVD. No lymphadenopathy. No thyromegaly. LUNGS: Clear to auscultation. No wheezes or rhonchi. No intercostal retractions. HEART: Regular rate and rhythm. No murmur. ABDOMEN: Soft. Bowel sounds are present. No masses. No tenderness. EXTREMITIES: No pedal edema. No calf tenderness. NEUROLOGICAL: Patient is awake, alert and oriented x3. Cranial nerves 2 through 12 are grossly intact. Please refer to medication reconciliation sheet for a list of medications. The impression and plan of care has been dictated by Debby Kate, Nurse Practitioner as directed. Dr. Rob MD I have performed a history and examination and MDM of this patient, discussed the same with the dictator, and agree with the dictator's assessment and plan as written ,documented as a scribe. Based on total visit time, I have performed more than 50% of the visit. Patient Condition at Discharge: Stable Plan - Discharge Summary Discharge Rx Participant: Yes New Discharge Prescriptions: New Aspirin 81 mg PO DAILY #30 tab Nitroglycerin Sl Tabs [Nitrostat] 0.4 mg SUBLINGUAL Q5M PRN #20 tab PRN Reason: Chest Pain Discharge Medication List Aspirin 81 mg PO DAILY #30 tab 10/09/22 [Rx] Nitroglycerin Sl Tabs [Nitrostat] 0.4 mg SUBLINGUAL Q5M PRN #20 tab 10/09/22 [Rx] Follow up Appointment(s)/Referral(s): Em Camacho MD [STAFF PHYSICIAN] - 1 Week (Please call to make a follow up appointment) Wayne Egan MD [STAFF PHYSICIAN] - 1 Week (Please call to make a follow up appointment) Patient Instructions/Handouts: Angina (DC) Activity/Diet/Wound Care/Special Instructions: Activity Limited until follow-up Follow-up with primary care provider to establish Follow-up with cardiology outpatient Continue heart healthy diet Discharge Disposition: HOME SELF-CARE
== END 2022-10-09 13:41 | disposition home or self-care (01) ==
LOC: EC 14:44 → INTOOBSV 17:00 → 3SCARD 17:00
PROVIDERS: ADMIT Hospitalist; ATTEND Hospitalist
DX: I20.9 Angina pectoris, unspecified (principal); R07.9 Chest pain, unspecified; D64.9 Anemia, unspecified; R11.2 Nausea with vomiting, unspecified; F10.20 Alcohol dependence, uncomplicated; Z86.16 Personal history of COVID-19; K76.0 Fatty (change of) liver, not elsewhere classified; Z87.891 Personal history of nicotine dependence; Z82.49 Family history of ischemic heart disease and other diseases of the circulatory system; Z79.82 Long term (current) use of aspirin
CPT/HCPCS: 36415; 94760; 93005; 93306; 93351; 80061; 80053; 80048; 83735 ×2; 84132; 84484; 85025; 85610; 85730 ×2; 87040; 71046; 71275; G0378 ×2; J1250; J2405; J0456; J0696; J1644 ×2; J3475; Q9967; 96365; 96366; 96368; 96375; 96376; 99291

== ENCOUNTER 2024-06-05 11:34 | Observation (INO) | payer OTHER ==
--- NOTE | 2024-06-05 12:30 | ED ---
General Adult HPI - General Chief complaint: Nausea/Vomiting/Diarrhea Stated complaint: Vomiting,Weakness Time Seen by Provider: 06/05/24 11:43 Source: patient Mode of arrival: ambulatory Limitations: no limitations - History of Present Illness Initial comments: Dictation was produced using [employer] dictation software. please excuse any grammatical, word or spelling errors. Chief Complaint: 63-year-old female presents with nausea vomiting diarrhea and chest pain History of Present Illness: Patient 63-year-old female she has no significant comorbidities presents emergency department with 1 week of nausea vomiting diarrhea states that her emesis and diarrhea is nonbloody nonbilious. She states that she feels really weak. She also had some chest pain. Apparently there is extensive cardiac history within the family. Denies any fever. She does complain of chills night sweats. No obvious sick contacts. The ROS documented in this emergency department record has been reviewed and confirmed by me. Those systems with pertinent positive or negative responses have been documented in the HPI. All other systems are other negative and/or noncontributory. - Related Data Home Medications Medication Instructions Recorded Confirmed No Known Home Medications 06/05/24 06/05/24 Allergies Allergy/AdvReac Type Severity Reaction Status Date / Time No Known Allergies Allergy Verified 06/05/24 12:25 Review of Systems ROS Statement: Those systems with pertinent positive or pertinent negative responses have been documented in the HPI. ROS Other: All systems not noted in ROS Statement are negative. Past Medical History Past Medical History: Myocardial Infarction (MD) Additional Past Medical History / Comment(s): COVID 2022 History of Any Multi-Drug Resistant Organisms: None Reported Past Surgical History: No Surgical Hx Reported Past Anesthesia/Blood Transfusion Reactions: No Reported Reaction Past Psychological History: No Psychological Hx Reported Smoking Status: Former smoker Past Alcohol Use History: Daily Past Drug Use History: Marijuana - Past Family History Mother History Unknown: Yes Additional Family Medical History / Comment(s): aneursym Father History Unknown: Yes Family Medical History: Myocardial Infarction (MD) General Exam - General Exam Comments Initial Comments: PHYSICAL EXAM: General Impression: Alert and oriented x3, not in acute distress HEENT: Normocephalic atraumatic, extra-ocular movements intact, pupils equal and reactive to light bilaterally, mucous membranes moist. Cardiovascular: Heart regular rate and rhythm Chest: Able to complete full sentences, no retractions, no tachypnea Abdomen: abdomen soft, non-tender, non-distended, no organomegaly Musculoskeletal: Pulses present and equal in all extremities, no peripheral edema Motor: no focal deficits noted Neurological: CN II-XII grossly intact, no focal motor or sensory deficits noted Skin: Intact with no visualized rashes Psych: Normal affect and mood Limitations: no limitations Course Vital Signs 06/05/24 11:44 Temperature 97.7 F Pulse Rate 104 H Respiratory 18 Rate Blood Pressure 134/78 O2 Sat by Pulse 100 Oximetry Medical Decision Making - Medical Decision Making Was pt. sent in by a medical professional or institution (, PA, [employer] [employer], urgent care, hospital, or residential...) When possible be specific @ -No Did you speak to anyone other than the patient for history (EMS, parent, family, police, friend...)? What history was obtained from this source @ -No Did you review nursing and triage notes (agree or disagree)? Why? @ -I reviewed and agree with nursing and triage notes Were old charts reviewed (outside hosp., previous admission, EMS record, old EKG, old radiological studies, urgent care reports/EKG's, residential records)? Report findings @ -No old charts were reviewed Differential Diagnosis (chest pain, altered mental status, abdominal pain women, abdominal pain men, vaginal bleeding, musculoskeletal, weakness, fever, dyspnea, syncope, headache, dizziness, GI bleed, back pain, seizure, CVA, palpatations, mental health)? @ -Differential Chest Pain: Stable Angina, Unstable Angina, STEMI, NSTEMI Aortic Dissection, Pneumothorax, Musculoskeletal, Esophageal Spasm GERD, Cholecystitis, Pancreatitis, Zoster, this is not meant to be an all-inclusive list. EKG interpreted by me (3pts min.). @ -My EKG interpretation: Ventricular rate 85, sinus rhythm, CO 142, cures 85, QTc 392. No CO prolongation, no QTC prolongation, no ST or T-wave changes noted. Overall, this EKG is unremarkable X-rays interpreted by me (1pt min.). @ -Chest x-ray shows no acute processes CT interpreted by me (1pt min.). @ -None done U/S interpreted by me (1pt. min.). @ -None done What testing was considered but not performed or refused? (CT, X-rays, U/S, labs)? Why? @ -None What meds were considered but not given or refused? Why? @ -None Was smoking cessation discussed for >3mins.? @ -No Were there social determinants of health that impacted care today? How? (Homelessness, low income, unemployed, alcoholism, drug addiction, transportation, low edu. Level, literacy, decrease access to med. care, long term, rehab)? @ -No Was there de-escalation of care discussed even if they declined (Discuss DNR or withdrawal of care, Hospice)? DNR status @ -No What co-morbidities impacted this encounter? (DM, HTN, Smoking, COPD, CAD, Cancer, CVA, ARF, Chemo, Hep., AIDS, mental health diagnosis, sleep apnea, morbid obesity)? @ -Family history of acute coronary syndrome Was patient admitted / discharged? Hospital course, mention meds given and route, prescriptions, significant lab abnormalities, going to OR and other pertinent info. @ -63-year-old female presents emergency department with symptoms of enteritis along with atypical chest pain typical features. Vital signs are stable. EKG shows no signs of ischemia infarction. Patient well-appearing at the bedside with nonsurgical abdomen. Laboratory evaluation obtained. Labs are within acceptable limits. Patient given symptomatic enteritis medications. Patient given aspirin will be admitted to observation for continued supportive care and cardiac monitoring with cardiology consultation. Case discussed with h ospitalist for admission Did you discuss the management of the patient with other professionals (pro fessionals i.e. , PA, [employer], lab, RT, psych nurse, social worker aide, ophthalmic technologist, teacher, forest fire officer, case specialist)? Give summary @ -Case discussed with hospitalist for admission Was critical care preformed (if so, how long)? @ -No Undiagnosed new problem with uncertain prognosis? @ -No Drug Therapy requiring intensive monitoring for toxicity (Heparin, Nitro, Insulin, Cardizem)? @ -No Were any procedures done? @ -No Diagnosis/symptom? Acute, or Chronic, or Acute on Chronic? Uncomplicated (wi thout systemic symptoms) or Complicated (systemic symptoms)? @ -Chest pain, gastroenteritis Side effects of treatment? @ -No Exacerbation, Progression, or Severe Exacerbation? @ -No Poses a threat to life or bodily function? How? (Chest pain, USA, MD, pneumonia, PE, COPD, DKA, ARF, appy, cholecystitis, CVA, Diverticulitis, Homicidal, Suicidal, threat to staff... and all critical care pts) @ -Yes - Lab Data Result diagrams: 06/05/24 12:50 06/05/24 12:50 Lab Results 06/05/24 06/05/24 06/05/24 Range/Units 12:50 12:50 12:50 WBC 12.5 H (3.8-10.6) k/uL RBC 2.99 L (3.80-5.40) m/uL Hgb 11.7 (11.4-16.0) gm/dL Hct 35.6 (34.0-46.0) % MCV 119.0 H (80.0-100.0) fL MCH 39.2 H (25.0-35.0) pg MCHC 33.0 (31.0-37.0) g/dL RDW 13.4 (11.5-15.5) % Plt Count 271 (150-450) k/uL MPV 8.4 Neutrophils % 83 % Lymphocytes % 10 % Monocytes % 5 % Eosinophils % 1 % Basophils % 0 % Neutrophils # 10.4 H (1.3-7.7) k/uL Lymphocytes # 1.2 (1.0-4.8) k/uL Monocytes # 0.7 (0-1.0) k/uL Eosinophils # 0.1 (0-0.7) k/uL Basophils # 0.0 (0-0.2) k/uL Manual Slide Review Performed Large Platelets Present Macrocytosis Marked A PT 11.2 (10.0-12.5) sec INR 1.0 (<1.2) APTT 20.6 L (22.0-30.0) sec Sodium 136 L (137-145) mmol/L Potassium 3.4 L (3.5-5.1) mmol/L Chloride 94 L (98-107) mmol/L Carbon Dioxide 27 (22-30) mmol/L Anion Gap 15 mmol/L BUN 29 H (7-17) mg/dL Creatinine 0.78 (0.52-1.04) mg/dL Est GFR (CKD-EPI)AfAm >90 (>60 ml/min/1.73 sqM) Est GFR (CKD-EPI)NonAf 81 (>60 ml/min/1.73 sqM) Glucose 300 H (74-99) mg/dL Calcium 9.6 (8.4-10.2) mg/dL Magnesium 2.0 (1.6-2.3) mg/dL Total Bilirubin 0.9 (0.2-1.3) mg/dL AST 90 H (14-36) U/L ALT 40 H (4-34) U/L Alkaline Phosphatase 60 (38-126) U/L Troponin I (0.000-0.034) ng/mL Total Protein 7.6 (6.3-8.2) g/dL Albumin 4.3 (3.5-5.0) g/dL Lipase 609 H (23-300) U/L 06/05/24 Range/Units 12:50 WBC (3.8-10.6) k/uL RBC (3.80-5.40) m/uL Hgb (11.4-16.0) gm/dL Hct (34.0-46.0) % MCV (80.0-100.0) fL MCH (25.0-35.0) pg MCHC (31.0-37.0) g/dL RDW (11.5-15.5) % Plt Count (150-450) k/uL MPV Neutrophils % % Lymphocytes % % Monocytes % % Eosinophils % % Basophils % % Neutrophils # (1.3-7.7) k/uL Lymphocytes # (1.0-4.8) k/uL Monocytes # (0-1.0) k/uL Eosinophils # (0-0.7) k/uL Basophils # (0-0.2) k/uL Manual Slide Review Large Platelets Macrocytosis PT (10.0-12.5) sec INR (<1.2) APTT (22.0-30.0) sec Sodium (137-145) mmol/L Potassium (3.5-5.1) mmol/L Chloride (98-107) mmol/L Carbon Dioxide (22-30) mmol/L Anion Gap mmol/L BUN (7-17) mg/dL Creatinine (0.52-1.04) mg/dL Est GFR (CKD-EPI)AfAm (>60 ml/min/1.73 sqM) Est GFR (CKD-EPI)NonAf (>60 ml/min/1.73 sqM) Glucose (74-99) mg/dL Calcium (8.4-10.2) mg/dL Magnesium (1.6-2.3) mg/dL Total Bilirubin (0.2-1.3) mg/dL AST (14-36) U/L ALT (4-34) U/L Alkaline Phosphatase (38-126) U/L Troponin I <0.012 (0.000-0.034) ng/mL Total Protein (6.3-8.2) g/dL Albumin (3.5-5.0) g/dL Lipase (23-300) U/L Disposition Clinical Impression: Gastroenteritis, Chest pain Disposition: ADMITTED IP TO THIS HOSP Condition: Fair Referrals: [facility] [Primary Care Provider] - 1-2 days Decision Time: 14:05
[2024-06-05] MEDS: DIPHENOX-ATROP 2.5-0.025 MG 1 EACH TAB PO STA (12:46)
[2024-06-05] MEDS: ASPIRIN 81 MG PO STA (12:46)
[2024-06-05] MEDS: ONDANSETRON 4 MG/2 ML VIAL IVP STA (12:46)
--- NOTE | 2024-06-05 12:46 | XR ---
EXAMINATION TYPE: XR chest 2V DATE OF EXAM: 06/05/2024 12:41 PM COMPARISON: 10/08/2022 CLINICAL INDICATION: Female, 63 years old with history of Chest Pain, , TECHNIQUE: PA and lateral views FINDINGS: The cardiomediastinal silhouette, aorta, and pulmonary vasculature are within normal limits. Lungs an d pleural spaces are clear. IMPRESSION: No acute cardiopulmonary process. [facility], Workstation: [id number], 06/05/2024 12:43 PM
[2024-06-05] MEDS: SODIUM CHLORIDE 0.9% 1,000 ML IV STA (12:47)
[2024-06-05 13:12] LABS: AST 90 U/L (14-36); African American GFR (CKD) >90 (>60 ml/min/1.73 sqM); Albumin 4.3 g/dL (3.5-5.0); Alkaline Phosphatase 60 U/L (38-126); Anion Gap 15 mmol/L; Basophils % (A) 0 %; Blood Urea Nitrogen 29 mg/dL (7-17); Calcium 9.6 mg/dL (8.4-10.2); Carbon Dioxide 27 mmol/L (22-30); Chloride 94 mmol/L (98-107); Eosinophils # (A) 0.1 k/uL (0-0.7); Eosinophils % (A) 1 %; Glucose 300 mg/dL (74-99); HCT 35.6 % (34.0-46.0); HGB 11.7 gm/dL (11.4-16.0); Lipase 609 U/L (23-300); Lymphocytes # (A) 1.2 k/uL (1.0-4.8); Lymphocytes % (A) 10 %; MCH 39.2 pg (25.0-35.0); Macrocytosis Marked; Mean Platelet Volume 8.4; Monocytes # (A) 0.7 k/uL (0-1.0); Monocytes % (A) 5 %; Neutrophils # (A) 10.4 k/uL (1.3-7.7); Neutrophils % (A) 83 %; Non-African American GFR(CKD) 81 (>60 ml/min/1.73 sqM); Platelet Count 271 k/uL (150-450); Potassium 3.4 mmol/L (3.5-5.1); RBC 2.99 m/uL (3.80-5.40); RDW 13.4 % (11.5-15.5); Sodium 136 mmol/L (137-145); Total Bilirubin 0.9 mg/dL (0.2-1.3); Total Protein 7.6 g/dL (6.3-8.2); WBC 12.5 k/uL (3.8-10.6)
[2024-06-05 13:18] LABS: Prothrombin Time 11.2 sec (10.0-12.5)
[2024-06-05 13:24] LABS: Partial Thromboplastin Time 20.6 sec (22.0-30.0)
[2024-06-05 13:41] LABS: ALT 40 U/L (4-34); Large Platelets Present
[2024-06-05] MEDS ORDERED: NITROGLYCERIN SL TABS 0.4 MG TAB SUBLINGUAL PRN (13:59)
[2024-06-05] MEDS ORDERED: NALOXONE 0.4 MG/ML 1 ML VIAL IV PRN (14:01)
[2024-06-05] MEDS ORDERED: ACETAMINOPHEN TAB 325 MG TAB PO PRN (14:01)
[2024-06-05] MEDS ORDERED: ONDANSETRON 4 MG/2 ML VIAL IVP PRN (14:01)
[2024-06-05] MEDS: SODIUM CHLORIDE 0.9% 1,000 ML IV SCH (15:04)
[2024-06-05 17:08] LABS: C Reactive Protein <0.5 mg/dL (<1.0); LDH 250 U/L (120-246)
--- NOTE | 2024-06-05 17:42 | P.HPIM ---
History of Present Illness H&P Date: 06/05/24 Patient is a 63 female with a PMH of [place] in 2023, presenting with intractable vomiting and chest pain. She states vomitings started 5 days ago, and says it has been constant. Said multiple episodes to the point where she is lost count. Patient denies any blood in her vomit. She also endorses urinary and stool incontinence. She says that she has been having multiple episodes of diarrhea. Patient denies any bloody stools. Patient denies any changes in medication, recent antibiotic use, or any sick contacts. Patient also reports of left-sided chest pain with no radiation that has been occurring off and on the past couple days. She also admits to heart palpitations. Any fever, chills headache, vision changes, shortness of breath abdominal pain, urinary symptoms. EKG independently interpreted displays sinus rhythm Chest x-ray independently interpreted displaying no cardiopulmonary process. Troponin <0.012, lipase 609, WBC 12.5, sodium 136, potassium 3.4, BUN 29, creatinine 0.70, and glucose 300, AST 90, ALT 40. T 97.7 F, NV 1 4, RR 18, BP 134/78, O2 sat 100% on room air ED documentation reviewed. Review of systems: Pertinent positives and negatives as discussed in HPI, a complete review of systems was performed and all other systems are negative. Social history: Tobacco: Former less than half pack smoker of 40 years, quit 1 month ago Alcohol: Drinks vodka and lemonade every day, last drink was Recreational drugs: Marijuana every day Physical examination: Vital signs reviewed General: non toxic, no distress, appears at stated age, normal weight Derm: no unusual rashes/lesions, warm Head: atraumatic, normocephalic, symmetric Eyes: EOMI, anicteric sclera, pupils equal round reactive to light ENT: Nose and ears atraumatic Neck: No cervical lymphadenopathy, trachea midline, supple Mouth: no lip lesion, mucus membranes moist Cardiovascular: S1S2 reg, no murmur, positive dorsalis pedis pulse bilateral, no edema Lungs: CTA bilateral, no rhonchi, no rales, no accessory muscle use Abdominal: soft, nontender to palpation, no guarding Ext: muscle strength 5 out of 5 in all 4 extremities grossly, no gross muscle atrophy Neuro: CN II-XI grossly intact, no gross focal neuro deficits Psych: Alert, oriented to person, place, and time Assessment/Plan: Patient is a 63 female with a PMH of [place], neuropathy presenting with intractable vomiting and chest pain. #. Intractable vomiting likely secondary to viral gastroenteritis #. Diarrhea in the setting of likely viral gastroenteritis Rule out acute pancreatitis Lipase 609 BISAP score 2 LDH 250 Patient denies any abdominal pain CT abdomen pelvis with contrast ordered Zofran 4 mg IVP every 8 hours as needed Continue supportive measures with LR at 130 cc/HR #. Atypical chest pain, rule out ACS EKG independently interpreted displaying normal sinus rhythm CXR independently interpreted displaying no acute cardiopulmonary Troponin negative x 2, continue to trend Continue aspirin 81 mg daily Placed on atorvastatin 40 mg nightly A1c and lipid panel ordered Cardiac monitoring Cardiac consult #. Hyperglycemia-patient with undiagnosed diabetes May be secondary to acute pancreatitis Glucose 300 Order UA 5 units of Levemir 5 units SQ HS Low insulin sliding scale SQ A1c ordered Placed on this insulin sliding scale Accu-Cheks Monitor for hypoglycemia F: LR at 130 cc/HR E: Replete electrolytes as needed N: Heart healthy diet A: Independent ambulatory DVT prophylaxis: Lovenox 40 SQ daily The patient is admitted with an anticipated last than 2 midnight stay for evaluation of intractable vomiting. Discussed with: Patient Anticipated discharge place: Home Brody Caban MD PGY-1 IM Dictation was produced using [employer] dictation software. please excuse any grammatical, word or spelling errors. I saw and evaluated the patient during the rodriguez and critical portions of this encounter, and discussed the case in detail with the resident author of this note, I agree with the Assessment and Plan, and my changes, if any, are highlighted in blue. Past Medical History Past Medical History: Myocardial Infarction ([place]) Additional Past Medical History / Comment(s): COVID 2022 History of Any Multi-Drug Resistant Organisms: None Reported Past Surgical History: No Surgical Hx Reported Past Anesthesia/Blood Transfusion Reactions: No Reported Reaction Past Psychological History: No Psychological Hx Reported Smoking Status: Former smoker Past Alcohol Use History: Daily Past Drug Use History: Marijuana - Past Family History Mother History Unknown: Yes Additional Family Medical History / Comment(s): aneursym Father History Unknown: Yes Family Medical History: Myocardial Infarction ([place]) Medications and Allergies Home Medications Medication Instructions Recorded Confirmed Type No Known Home Medications 06/05/24 06/05/24 History Allergies Allergy/AdvReac Type Severity Reaction Status Date / Time No Known Allergies Allergy Verified 06/05/24 12:25 Physical Exam Osteopathic Statement: *. No significant issues noted on an osteopathic structural exam other than those noted in the History and Physical/Consult. Vitals: Vital Signs Temp Pulse Resp BP Pulse Ox 06/05/24 11:44 97.7 F 104 H 18 134/78 100 Intake and Output 06/04/24 06/05/24 06/05/24 22:59 06:59 14:59 Other: Weight 54.431 kg Results CBC & Chem 7: 06/05/24 12:50 06/05/24 12:50 Labs: Abnormal Lab Results - Last 24 Hours (Table) 06/05/24 06/05/24 06/05/24 Range/Units 12:50 12:50 12:50 WBC 12.5 H (3.8-10.6) k/uL RBC 2.99 L (3.80-5.40) m/uL MCV 119.0 H (80.0-100.0) fL MCH 39.2 H (25.0-35.0) pg Neutrophils # 10.4 H (1.3-7.7) k/uL Macrocytosis Marked A APTT 20.6 L (22.0-30.0) sec Sodium 136 L (137-145) mmol/L Potassium 3.4 L (3.5-5.1) mmol/L Chloride 94 L (98-107) mmol/L BUN 29 H (7-17) mg/dL Glucose 300 H (74-99) mg/dL AST 90 H (14-36) U/L ALT 40 H (4-34) U/L Lipase 609 H (23-300) U/L
--- NOTE | 2024-06-05 17:51 | CT ---
EXAMINATION TYPE: CT abdomen pelvis w con CT DLP: 619.3 mGycm, Automated exposure control for dose reduction was used. DATE OF EXAM: 06/05/2024 5:14 PM COMPARISON: None CLINICAL INDICATION:Female, 63 years old with history of nausea, vomiting; TECHNIQUE: Standard CT of the abdomen and pelvis following the administration of 100 cc of Isovue 3 00 IV contrast material. Coronal and sagittal reformats were performed. FINDINGS: LOWER CHEST: Unremarkable ABDOMEN LIVER: Diffusely hypoattenuating parenchyma. GALLBLADDER AND BILE DUCTS: Unremarkable. PANCREAS: Unremarkable. SPLEEN: Unremarkable. ADRENAL GLANDS: Unremarkable. KIDNEYS AND URETERS: No evidence of hydronephrosis or renal calculus. Bilateral renal cysts the large st in the right kidney measuring up to 3.2 cm and largest within the left kidney measuring up to 2.7 cm. Contrast is demonstrated within both collecting systems on the delayed phase. PELVIS BLADDER: Incompletely distended but grossly unremarkable. REPRODUCTIVE: Unremarkable. ABDOMEN & PELVIS STOMACH AND BOWEL: Small hiatal hernia, duodenum is unremarkable. Circumferential wall thickening in the visualized distal esophagus. Scattered distal colonic diverticula without evidence for acute dive rticulitis. The appendix is within normal limits. No focal bowel wall thickening or surrounding infla mmatory changes. No evidence of bowel obstruction. PERITONEUM: No evidence of pneumoperitoneum or free fluid. VASCULATURE: Mild atherosclerotic calcifications are present throughout the abdominal aorta and its b ranches. No evidence of aortic aneurysm. Calcification and/or stent involving the origin of the left renal artery. Pelvic phleboliths. MUSCULOSKELETAL: No acute osseous abnormalities LYMPH NODES: No evidence for lymphadenopathy. SOFT TISSUE/ABDOMINAL WALL: Unremarkable IMPRESSION: 1. Small hiatal hernia with circumferential wall thickening of the visualized distal esophagus which may relate to reflux versus esophagitis. 2. Colonic diverticulosis without evidence for acute diverticulitis. 3. Hepatic steatosis. [facility], , 06/05/2024 5:49 PM
[2024-06-05 20:38] LABS: Glucose,Whole Blood 195 mg/dL (70-110)
[2024-06-05] MEDS: ATORVASTATIN 40 MG TAB PO SCH (20:48)
[2024-06-05] MEDS: LACTATED RINGERS 1,000 ML IV SCH (20:49)
[2024-06-05] MEDS: INSULIN ASPART (NovoLOG) 100 UNIT/ML VIAL SQ SCH (20:49)
[2024-06-05] MEDS: GABAPENTIN 100 MG CAP PO SCH (20:50)
[2024-06-05] MEDS: INSULIN DETEMIR (LEVEMIR) 100 UNIT/ML SYR SQ SCH (20:58)
[2024-06-05] MEDS: DIPHENOX-ATROP 2.5-0.025 MG 1 EACH TAB PO PRN (22:08)
[2024-06-05 23:51] VITALS: RESP 17
[2024-06-06 05:37] LABS: Glucose,Whole Blood 156 mg/dL (70-110)
[2024-06-06 06:00] LABS: Basophils % (A) 0 %; Eosinophils # (A) 0.2 k/uL (0-0.7); Eosinophils % (A) 2 %; HCT 27.6 % (34.0-46.0); Lymphocytes # (A) 1.8 k/uL (1.0-4.8); Lymphocytes % (A) 20 %; MCH 40.3 pg (25.0-35.0); MCHC 34.3 g/dL (31.0-37.0); Macrocytosis Marked; Mean Platelet Volume 8.4; Monocytes # (A) 0.7 k/uL (0-1.0); Monocytes % (A) 8 %; Neutrophils # (A) 6.2 k/uL (1.3-7.7); Neutrophils % (A) 69 %; Platelet Count 218 k/uL (150-450); RBC 2.35 m/uL (3.80-5.40); RDW 13.9 % (11.5-15.5)
[2024-06-06 06:02] LABS: HGB 9.5 gm/dL (11.4-16.0)
[2024-06-06 06:03] LABS: MCV 117.5 fL (80.0-100.0)
[2024-06-06 06:05] LABS: ALT 24 U/L (4-34); AST 60 U/L (14-36); African American GFR (CKD) >90 (>60 ml/min/1.73 sqM); Albumin/Globulin Ratio 1.1; Alkaline Phosphatase 48 U/L (38-126); Anion Gap 8 mmol/L; Blood Urea Nitrogen 19 mg/dL (7-17); Calcium 8.8 mg/dL (8.4-10.2); Carbon Dioxide 29 mmol/L (22-30); Chloride 100 mmol/L (98-107); Globulin 2.7 g/dL; Glucose 105 mg/dL (74-99); Non-African American GFR(CKD) >90 (>60 ml/min/1.73 sqM); Potassium 2.9 mmol/L (3.5-5.1); Sodium 137 mmol/L (137-145); Total Bilirubin 0.7 mg/dL (0.2-1.3); Total Protein 5.7 g/dL (6.3-8.2)
[2024-06-06 06:22] LABS: Appearance,Urine Clear (Clear); Bacteria,Urine Few /hpf; Bilirubin,Urine Negative (Negative); Blood,Urine Moderate (Negative); Color,Urine Yellow; Glucose,Urine (UA) Negative (Negative); Hyaline Casts,Urine 2 /lpf (0-2); Ketones,Urine Negative (Negative); Leukocyte Esterase,Urine Large (Negative); Mucus,Urine Rare /hpf; Nitrite,Urine Negative (Negative); Protein,Urine Trace (Negative); RBC,Urine 16 /hpf (0-5); Squamous Epithelial Cell,Urine 9 /hpf (0-4); WBC,Urine 99 /hpf (0-5)
[2024-06-06 06:24] LABS: Specific Gravity,Urine >1.050 (1.001-1.035)
[2024-06-06] MEDS: POTASSIUM CHLORIDE ER 20 MEQ TAB.ER PO STA (06:31)
[2024-06-06 07:47] VITALS: BP 124/83; PULSE 71; TEMP 98.6
[2024-06-06 08:44] LABS: Chol/HDL Ratio 3.31 Ratio
[2024-06-06] MEDS ORDERED: ASPIRIN 325 MG TAB PO SCH (09:00)
[2024-06-06] MEDS: ASPIRIN 81 MG PO SCH (09:08)
[2024-06-06] MEDS: POTASSIUM CHLORIDE ER 20 MEQ TAB.ER PO ONE (09:09)
[2024-06-06] MEDS: ENOXAPARIN 40 MG/0.4 ML SYRINGE SQ SCH (09:10)
--- NOTE | 2024-06-06 11:10 | CA ---
Transthoracic Echo Report Name: Geovanna Mixon Age: 63 Gender: F : 1960 Exam Date: 06/06/2024 10:00 Exam Location: [facility] Ht (in): 64 Wt (lb): 120 Ordering Physician: Brody Caban MD Attending/Referring Phys: Specialty Manufacturing Supervisor Bina Briggs, JOSE A Procedure CPT: Indications: Slurred speech, CVA Cardiac Hx: Technical Quality: Good Contrast 1: Agitated Saline Total Dose (mL): Contrast 2: Total Dose (mL): MEASUREMENTS (Male / Female) Normal Values 2D ECHO LV Diastolic Diameter PLAX 3.8 cm 4.2 - 5.9 / 3.9 - 5.3 cm LV Systolic Diameter PLAX 1.6 cm IVS Diastolic Thickness 0.8 cm 0.6 - 1.0 / 0.6 - 0.9 cm LVPW Diastolic Thickness 1.0 cm 0.6 - 1.0 / 0.6 - 0.9 cm LV Relative Wall Thickness 0.5 RV Internal Dim ED PLAX 2.6 cm LA Systolic Diameter LX 3.6 cm 3.0 - 4.0 / 2.7 - 3.8 cm LV Diastolic Volume MOD BP 40.0 cm??? 67 - 155 / 56 - 104 cm??? LV Systolic Volume MOD BP 11.5 cm??? 22 - 58 / 19 - 49 cm??? LV Ejection Fraction MOD BP 71.3 % >= 55 % LV Cardiac Index MOD BP 1490.7 cm???/min???m??? LV Diastolic Volume MOD 4C 41.2 cm??? LV Systolic Volume MOD 4C 12.4 cm??? LV Ejection Fraction MOD 4C 70.0 % LV Cardiac Index MOD 4C 1508.1 cm???/min???m??? LV Diastolic Length 4C 6.2 cm LV Systolic Length 4C 4.6 cm LV Diastolic Volume MOD 2C 38.6 cm??? LV Systolic Volume MOD 2C 10.3 cm??? LV Ejection Fraction MOD 2C 73.3 % LV Cardiac Index MOD 2C 1481.9 cm???/min???m??? LV Diastolic Length 2C 6.3 cm LV Systolic Length 2C 4.8 cm M-MODE Aortic Root Diameter MM 3.1 cm LA Systolic Diameter MM 3.5 cm LA Ao Ratio MM 1.1 AV Cusp Separation MM 1.8 cm DOPPLER Mitral E Point Velocity 72.9 cm/s Mitral A Point Velocity 74.5 cm/s Mitral E to A Ratio 1.0 MV Deceleration Time 185.7 ms MV E' Velocity 7.4 cm/s Mitral E to MV E' Ratio 9.8 TR Peak Velocity 206.5 cm/s TR Peak Gradient 17.1 mmHg Right Ventricular Systolic Press 27.2 mmHg FINDINGS Left Ventricle Left ventricular ejection fraction is estimated at 55-60%. Normal left ventricular systolic function with no obvious regional wall motion abnormalities. Left ventricular cavity size normal. Left ventricular wall thickness normal. Right Ventricle Normal right ventricular size and function. Right ventricular systolic pressure within normal limits. Right Atrium Normal right atrial size. Negative agitated saline bubble study for right to left shunt. Left Atrium Normal left atrial size. Mitral Valve Structurally normal mitral valve. Trace to mild mitral regurgitation. No mitral stenosis. Aortic Valve Trileaflet aortic valve. No aortic valve stenosis or regurgitation. Tricuspid Valve Structurally normal tricuspid valve. Mild tricuspid regurgitation. No tricuspid stenosis. Pulmonic Valve Structurally normal pulmonic valve. No pulmonic stenosis. Trace pulmonic regurgitation. Pericardium No pericardial or pleural effusion. Aorta Normal size aortic root and proximal ascending aorta. CONCLUSIONS Normal LV size and systolic function. Mild mitral and tricuspid regurgitation. No pulmonary hypertension. No pericardial effusion. Bubble study was negative for shunt Previewed by: Dr. Cyril Kumar MD (Electronically Signed) Final Date: 06 June 2024 11:09
--- NOTE | 2024-06-06 12:42 | P.CRDCN ---
History of Present Illness History of present illness: HISTORY OF PRESENT ILLNESS: This is a 63-year-old female with a past medical history significant for former nicotine dependence and daily alcohol use. Patient follows in the office with Jaimie Escobar. We have been asked to see the patient in consultation for chest pain. Patient examined at the bedside. Patient presented to the hospital to chief complaint of nausea and vomiting. Patient states she has been having numerous episodes of vomiting that started last Wednesday. She states she began to have chest pain after one of her vomiting episodes. She does report that she took a sublingual nitro with relief of her chest pain. She also reports having some palpitations after she threw up. At the time of examination this morning, patient denies any chest pain or pressure. She denies any shortness of breath. She states her nausea and vomiting have improved and she is tolerating liquid diet. Vital signs are stable. DIAGNOSTICS: - EKG reveals sinus mechanism with no signs of acute ischemia. - Chest xray negative for acute process - Laboratory data: WBC 9.0. Hemoglobin 9.5. Platelet count 218. Sodium 137. Potassium 2.9. BUN 19. Creatinine 0.66. Troponin negative x 3. - Current home cardiac medications include aspirin 81 mg daily - Echocardiogram obtained this admission reveals ejection fraction 55 to 60%, trace to mild MR, mild TR, no pericardial effusion, negative bubble study - Patient underwent dobutamine stress echo in October 2022 which was negative for ischemia REVIEW OF SYSTEMS: At the time of my exam: CONSTITUTIONAL: Denies fever or chills. HEENT: Denies blurred vision, vision changes, or eye pain. Denies hemoptysis CARDIOVASCULAR: Denies chest pain. Denies orthopnea. Denies PND. Denies palpitations RESPIRATORY: Denies shortness of breath. GASTROINTESTINAL: Denies abdominal pain. Denies nausea or vomiting. HEMATOLOGIC: Denies bleeding disorders. GENITOURINARY: Denies any blood in urine. SKIN: Denies pruitis. Denies rash. PHYSICAL EXAM: VITAL SIGNS: Reviewed. GENERAL: Well-developed in no acute distress. HEENT: Head is normocephalic. Pupils are equal, round. Sclerae anicteric. Mucous membranes of the mouth are moist. Neck supple. No JVD or thyromegaly LUNGS: Respirations even and unlabored. Lungs essentially clear to auscultation bilaterally. HEART: Regular rate and rhythm. S1 and S2 heard. ABDOMEN: Soft. Nondistended. Nontender. EXTREMITIES: Normal range of motion. No clubbing or cyanosis. Peripheral pulses intact. No lower extremity edema NEUROLOGIC: Awake and alert. Oriented x 3. ASSESSMENT: Intractable nausea and vomiting Chest pain, atypical, likely secondary to above, acute coronary event ruled out Hyperglycemia Former nicotine dependence Daily alcohol use PLAN: An acute coronary event has been ruled out 2D echo obtained and reviewed Recommend abstinence from alcohol No plans for inpatient stress testing or cardiac catheterization at this time Patient may be discharged home from a cardiac standpoint Patient to follow-up postdischarge in the office with Dr. Escobar Nurse practitioner note has been reviewed by physician. Signing provider agrees with the documented findings, assessment, and plan of care documented by CYCLE CONSULTANT as a scribe. Past Medical History Past Medical History: Myocardial Infarction ([place]) Additional Past Medical History / Comment(s): COVID 2022 Last Myocardial Infarction Date:: 2023 History of Any Multi-Drug Resistant Organisms: None Reported Past Surgical History: No Surgical Hx Reported Past Anesthesia/Blood Transfusion Reactions: No Reported Reaction Past Psychological History: No Psychological Hx Reported Smoking Status: Former smoker Past Alcohol Use History: Daily Additional Past Alcohol Use History / Comment(s): pt states 1-2 drinks a day but states she has not had one in a week. Denies ever going through DTs. Past Drug Use History: Marijuana - Past Family History Mother History Unknown: Yes Additional Family Medical History / Comment(s): aneursym Father History Unknown: Yes Family Medical History: Myocardial Infarction ([place]) Medications and Allergies Home Medications Medication Instructions Recorded Confirmed Type Aspirin EC [Ecotrin Low Dose] 81 mg PO DAILY 06/05/24 06/05/24 History Gabapentin [Neurontin] 100 mg PO TID 06/05/24 06/05/24 History Ondansetron [Zofran] 4 mg PO Q8HR PRN #14 tab 06/06/24 Rx Allergies Allergy/AdvReac Type Severity Reaction Status Date / Time No Known Allergies Allergy Verified 06/05/24 12:25 Physical Exam Vitals: Vital Signs Temp Pulse Pulse Resp BP BP Pulse Ox 06/06/24 07:00 98.6 F 71 17 124/83 100 06/06/24 04:29 98.0 F 70 17 112/70 99 06/05/24 23:50 98.2 F 75 17 143/81 99 06/05/24 22:38 99.2 F 78 18 107/72 98 06/05/24 20:34 74 18 125/75 100 06/05/24 15:02 76 16 117/66 99 Intake and Output 06/05/24 06/06/24 06/06/24 22:59 06:59 14:59 Intake Total 118 Balance 118 Intake: Oral 118 Other: Voiding Method Toilet # Voids 2 Weight 54.431 kg Results 06/06/24 05:05 06/06/24 05:05 Cardiac Enzymes 06/05/24 06/05/24 06/05/24 Range/Units 12:50 12:50 16:23 AST 90 H (14-36) U/L Lactate Dehydrogenase (120-246) U/L Troponin I <0.012 <0.012 (0.000-0.034) ng/mL 06/05/24 06/05/24 06/06/24 Range/Units 16:23 19:12 05:05 AST 60 H (14-36) U/L Lactate Dehydrogenase 250 H (120-246) U/L Troponin I <0.012 (0.000-0.034) ng/mL Coagulation 06/05/24 Range/Units 12:50 PT 11.2 (10.0-12.5) sec APTT 20.6 L (22.0-30.0) sec Lipids 06/06/24 Range/Units 05:05 Triglycerides 102.00 (0.00-149.00) mg/dL Cholesterol 118.00 (0.00-200.00) mg/dL HDL Cholesterol 35.60 L (40.00-60.00) mg/dL Cholesterol/HDL Ratio 3.31 Ratio CBC 06/05/24 06/06/24 Range/Units 12:50 05:05 WBC 12.5 H 9.0 (3.8-10.6) k/uL RBC 2.99 L 2.35 L (3.80-5.40) m/uL Hgb 11.7 9.5 L D (11.4-16.0) gm/dL Hct 35.6 27.6 L (34.0-46.0) % Plt Count 271 218 (150-450) k/uL Comprehensive Metabolic Panel 06/05/24 06/06/24 Range/Units 12:50 05:05 Sodium 136 L 137 (137-145) mmol/L Potassium 3.4 L 2.9 L (3.5-5.1) mmol/L Chloride 94 L 100 (98-107) mmol/L Carbon Dioxide 27 29 (22-30) mmol/L BUN 29 H 19 H (7-17) mg/dL Creatinine 0.78 0.66 (0.52-1.04) mg/dL Glucose 300 H 105 H (74-99) mg/dL Calcium 9.6 8.8 (8.4-10.2) mg/dL AST 90 H 60 H (14-36) U/L ALT 40 H 24 (4-34) U/L Alkaline Phosphatase 60 48 (38-126) U/L Total Protein 7.6 5.7 L (6.3-8.2) g/dL Albumin 4.3 3.0 L (3.5-5.0) g/dL Intake and Output 06/05/24 06/06/24 06/06/24 22:59 06:59 14:59 Intake Total 118 Balance 118 Intake: Oral 118 Other: Voiding Method Toilet # Voids 2 Weight 54.431 kg 06/06/24 05:05 06/06/24 05:05
--- NOTE | 2024-06-06 13:31 | P.DS ---
Providers Date of admission: 06/05/24 14:01 Discharge Diagnosis: Intractable vomiting likely secondary to viral gastroenteritis Diarrhea in the setting of likely viral gastroenteritis Atypical chest pain Hyperglycemia in patient with undiagnosed diabetes Macrocytic anemia Hospital course: Patient is a 63 female with a PMH of [place] in 2023, presenting with intractable vomiting and chest pain. She states vomitings started 5 days ago, and says it has been constant. Said multiple episodes to the point where she is lost count. Patient denies any blood in her vomit. She also endorses urinary and stool incontinence. She says that she has been having multiple episodes of diarrhea. Patient denies any bloody stools. Patient denies any changes in medication, recent antibiotic use, or any sick contacts. Patient also reports of left-sided chest pain with no radiation that has been occurring off and on the past couple days. She also admits to heart palpitations. Any fever, chills headache, vision changes, shortness of breath abdominal pain, urinary symptoms. EKG independently interpreted displays sinus rhythm Chest x-ray independently interpreted displaying no cardiopulmonary process. Troponin <0.012, lipase 609, WBC 12.5, sodium 136, potassium 3.4, BUN 29, creatinine 0.70, and glucose 300, AST 90, ALT 40. T 97.7 F, CA 1 4, RR 18, BP 134/78, O2 sat 100% on room air Patient was admitted to internal medicine service. Cardiology is on the case as well for her chest pain. While admitted a workup was done for possible acute pancreatitis. CT abdomen showed no evidence of acute pancreatitis. She was placed on bedrest and fluid resuscitation for her gastroenteritis. Patient was seen by cardiology. ACS was ruled out, no plans for stress testing or cardiac catheterization. Patient was cleared by cardiology. Symptoms have resolved. She reports of not vomiting since she been admitted. She is to follow-up with her PCP and cardiology. Patient is being discharged home. Vital signs reviewed and stable. Physical examination: Vital signs reviewed General: non toxic, no distress, appears at stated age, normal weight Derm: no unusual rashes/lesions, warm Head: atraumatic, normocephalic, symmetric Eyes: EOMI, anicteric sclera, pupils equal round reactive to light ENT: Nose and ears atraumatic Neck: No cervical lymphadenopathy, trachea midline, supple Mouth: no lip lesion, mucus membranes moist Cardiovascular: S1S2 reg, no murmur, positive dorsalis pedis pulse bilateral, no edema Lungs: CTA bilateral, no rhonchi, no rales, no accessory muscle use Abdominal: soft, nontender to palpation, no guarding Ext: muscle strength 5 out of 5 in all 4 extremities grossly, no gross muscle atrophy Neuro: CN II-XI grossly intact, no gross focal neuro deficits Psych: Alert, oriented to person, place, and time A total of greater than 30 minutes of time were spent preparing this complex discharge summary. Patient was discharge on June 06 at 11:14. Brody Caban MD PGY-1 IM Dictation was produced using [employer] dictation software. please excuse any grammatical, word or spelling errors. I saw and evaluated the patient during the rodriguez and critical portions of this encounter, and discussed the case in detail with the resident author of this note, I agree with the Assessment and Plan, and my changes, if any, are highlighted in blue. Expected date of discharge: 06/06/24 Attending physician: Trevor Tai MD Consults: 06/05/24 13:59 Consult Physician Urgent Consulting Provider: Cyril Kumar Consult Reason/Comments: chest pain Do you want consulting provider notified?: Yes Primary care physician: [facility] Patient Condition at Discharge: Fair Plan - Discharge Summary New Discharge Prescriptions: New Ondansetron [Zofran] 4 mg PO Q8HR PRN #14 tab PRN Reason: Nausea Continue Aspirin EC [Ecotrin Low Dose] 81 mg PO DAILY Gabapentin [Neurontin] 100 mg PO TID Discharge Medication List Aspirin EC [Ecotrin Low Dose] 81 mg PO DAILY 06/05/24 [History] Gabapentin [Neurontin] 100 mg PO TID 06/05/24 [History] Ondansetron [Zofran] 4 mg PO Q8HR PRN #14 tab 06/06/24 [Rx] Follow up Appointment(s)/Referral(s): Eren Escobar MD [STAFF PHYSICIAN] - 1 Week [facility] [Primary Care Provider] - 1-2 days Patient Instructions/Handouts: Gastroenteritis (DC) Discharge Disposition: HOME SELF-CARE
[2024-06-06 17:46] LABS: % Iron Saturation 8.31 (12.00-45.00)
== END 2024-06-06 12:18 | disposition home or self-care (01) ==
LOC: EC 11:34 → 6NMEDSUR 14:01
PROVIDERS: ADMIT Internal Medicine; ATTEND Internal Medicine
DX: R11.2 Nausea with vomiting, unspecified (principal); R19.7 Diarrhea, unspecified; R07.89 Other chest pain; R73.9 Hyperglycemia, unspecified; D53.9 Nutritional anemia, unspecified; I25.2 Old myocardial infarction; Z86.16 Personal history of COVID-19; Z87.891 Personal history of nicotine dependence; Z79.82 Long term (current) use of aspirin; Z79.899 Other long term (current) drug therapy
CPT/HCPCS: 96374; 99285; 36415; 93005 ×2; 93306; 82747; 80061; 80053 ×2; 84443; 82607; 82728; 83540; 83550; 83605; 83615; 83690; 83735 ×2; 84484; 85025 ×2; 85610; 85730; 86140; 81001; 87324; 84466; 87086; 83036; 71046; 74177; G0378 ×2; J2405; Q9967